=== PATIENT | male | born 1990 | race Caucasian/White ===

== ENCOUNTER → 2016-10-23 | Outpatient (CLI) | payer BC ==
--- NOTE | 2016-10-23 10:43 | DI ---
LEFT ANKLE, 10/23/2016 9:27 AM: Clinical History: Left ankle pain. Previous Exam: 05/12/2016. 3 views are submitted. There is no acute soft tissue, osseous, or joint abnormality. Reading: Normal left ankle exam with no interval change.
== END ==
LOC: ORTHO 09:36
PROVIDERS: ATTEND Orthopaedic Surgery
DX: M25.572 Pain in left ankle and joints of left foot (principal); Z72.0 Tobacco use
CPT/HCPCS: 73610

== ENCOUNTER → 2016-10-31 | Outpatient (CLI) | payer BC ==
--- NOTE | 2016-11-02 00:04 | DI ---
MRI LOW EXTREMITY JNT W/O CN,10/31/2016 12:54 PM: Clinical History: Left ankle pain of unspecified chronicity. Previous Exam: None at this facility. Findings: Multiplanar MR images are obtained through the left ankle without contrast, and demonstrate anatomic alignment without fractures. There is a low signal area within the superior calcaneus most consistent with a bone island. The Achilles tendon is unremarkable. The plantar fascia is unremarkable. The deltoid ligamentous complex is intact. There is thickening of the anterior talofibular ligament most consistent with prior injuries. The posterior talofibular ligament There is no subchondral cyst formation The major vascular flow voids are unremarkable. Impression: Thickening of the anterior talofibular ligament consistent with prior tears or partial tears.
== END ==
LOC: MRI 12:49
PROVIDERS: ATTEND Orthopaedic Surgery
DX: M25.572 Pain in left ankle and joints of left foot (principal); S93.492S Sprain of other ligament of left ankle, sequela
CPT/HCPCS: 73721

== ENCOUNTER → 2016-11-20 | Outpatient (CLI) | payer BC ==
--- NOTE | 2016-11-21 14:47 | DI ---
LEFT ANKLE, 11/20/2016 11:55 AM: Clinical History: Left ankle pain. Previous Exam: 10/23/2016. 3 views are submitted. There is no acute soft tissue, osseous, or joint abnormality. Reading: Normal left ankle exam. There has been no change.
== END ==
LOC: ORTHO 12:24
PROVIDERS: ATTEND Orthopaedic Surgery
DX: M25.572 Pain in left ankle and joints of left foot (principal); W55.12XA Struck by horse, initial encounter; F17.200 Nicotine dependence, unspecified, uncomplicated
CPT/HCPCS: 73610